=== PATIENT | male | born 1995 | race Caucasian/White ===

== ENCOUNTER 2019-01-17 02:08 | Emergency (ER) | payer OTHER ==
[~2019-01-17] VITALS: Ht 182.9 cm; Wt 81.7 kg
[~2019-01-17 02:08] MED LIST: ACETAMINOPHEN-1 EAC1 PO; ADDERALL 20 MG20 M1 PO; ALLEGRA; AMOXICILLIN 50500 MG PO; CARAFATE1 GM/10 ML PO; CELEXA 10 MG TA10 M1; CLEOCIN HCL150 MG PO; IBUPROFEN 800800 M1 PO; LORTABELXR PO; NOHOMEMEDICATIONS; NORCO 5-325 TA1 EACH PO; PENICILLIN V P500 MG PO; PENICILLIN VK500 M1 PO; PROMETH-CODEIN 65 ML PO; VYVANSE30 MG PO; ZOFRAN ODT4 MG PO; ZOFRAN8 MG; [UNRECOGNIZED DRUG - REMARK]
[2019-01-17] MEDS ORDERED: NORCO 7.5-3251 EACH PO (02:39)
[2019-01-17] MEDS ORDERED: AMOXICILLIN875 MG PO (02:39)
[2019-01-17 02:52] VITALS: BP 122/66
== END 2019-01-17 02:53 | disposition home or self-care (01) ==
LOC: M.ERS 02:08
DX: K02.9 Dental caries, unspecified (principal); K58.9 Irritable bowel syndrome, unspecified; F17.210 Nicotine dependence, cigarettes, uncomplicated

== ENCOUNTER 2021-10-17 21:32 | Emergency (ER) | payer OTHER ==
[~2021-10-17] VITALS: Ht 182.9 cm; Wt 83.9 kg
[~2021-10-17 21:32] MED LIST changes: +AMOXICILLIN875 MG PO; +NORCO 7.5-3251 EACH PO
[2021-10-17] MEDS ORDERED: CEPHALEXIN500 MG PO (23:04)
[2021-10-17] MEDS ORDERED: ACETAMINOPHEN-1 EAC2 PO (23:04)
[2021-10-17 23:21] VITALS: BP 132/78
== END 2021-10-17 23:22 | disposition home or self-care (01) ==
LOC: M.ERS 21:32
DX: H60.02 Abscess of left external ear (principal); F17.210 Nicotine dependence, cigarettes, uncomplicated; Z79.2 Long term (current) use of antibiotics